=== PATIENT | male | born 1995 | race Caucasian/White ===

== ENCOUNTER 2017-11-09 13:45 | Emergency (ER) | payer OTHER ==
[2017-11-09 13:51] VITALS: PULSE 58
--- NOTE | 2017-11-09 14:49 | C.PDOC ---
History Of Present Illness 21yo male, presents to ER for evaluation of possible herpes exposure. Patient states 2 days ago, his girlfriend told him she had a herpes outbreak; patient reports last intercourse was 1 week ago. He denies any symptoms but is requesting testing for herpes. He denies any fever, chills, and offers no other medical complaints. PMD: Katarina Arzate Time Seen by Provider: 11/09/17 13:55 Chief Complaint (Nursing): Medical Clearance History Per: Patient History/Exam Limitations: no limitations Past Medical History Reviewed: Historical Data, Nursing Documentation, Vital Signs Vital Signs: Last Vital Signs Temp 98.2 F 11/09/17 13:48 Pulse 58 L 11/09/17 13:48 Resp 18 11/09/17 13:48 BP 130/76 11/09/17 13:48 Pulse Ox 100 11/09/17 14:53 - Medical History PMH: No Chronic Diseases Surgical History: No Surg Hx Family History: States: No Known Family Hx - Social History Hx Alcohol Use: No Hx Substance Use: No - Immunization History Hx Tetanus Toxoid Vaccination: Yes Hx Influenza Vaccination: Yes Hx Pneumococcal Vaccination: No Review Of Systems Except As Marked, All Systems Reviewed And Found Negative. Constitutional: Negative for: Fever, Chills Physical Exam - Physical Exam Appears: Non-toxic, No Acute Distress Skin: Normal Color, Warm, Dry Head: Atraumatic, Normacephalic Eye(s): bilateral: Normal Inspection Neck: Supple Chest: Symmetrical Cardiovascular: Rhythm Regular Respiratory: Normal Breath Sounds Male Genital: Normal Inspection, No Other (penile discharge, lesions) Neurological/Psych: Oriented x3 ED Course And Treatment O2 Sat by Pulse Oximetry: 100 (RA) Pulse Ox Interpretation: Normal Medical Decision Making Medical Decision Making: Impression: Herpes exposure Plan: -- Cultures sent Patient given prescription for Acyclovir and instructed to take the medication as prescribed. Patient informed results will not come in today and he will be informed when they are made available. Informed to follow up with PMD in 2-3 days. Disposition Counseled Patient/Family Regarding: Studies Performed, Diagnosis, Need For Followup, Rx Given - Disposition Referrals: [facility] [Outside] Disposition: HOME/ ROUTINE Disposition Time: 14:47 Condition: STABLE Additional Instructions: follow up with your doctor or medical clinic in 2 days call to make an appointment take medications as prescribed return to ER if symptoms worsens or progress Prescriptions: Acyclovir 400 mg PO TID #21 tablet Instructions: Genital Herpes Forms: [facility] ([place]), General Discharge Instructions - Clinical Impression Clinical Impression: Screen for STD (sexually transmitted disease) - Scribe Statement The provider has reviewed the documentation as recorded by the Scribe (Carlie Sena) Provider Attestation: All medical record entries made by the Scribe were at my direction and personally dictated by me. I have reviewed the chart and agree that the record accurately reflects my personal performance of the history, physical exam, medical decision making, and the department course for this patient. I have also personally directed, reviewed, and agree with the discharge instructions and disposition.
[2017-11-09 15:25] VITALS: BP 121/75; RESP 16; TEMP 98.8; O2SAT 97
== END 2017-11-09 15:20 | disposition home or self-care (01) ==
LOC: C.ER 13:45
DX: Z11.3 Encounter for screening for infections with a predominantly sexual mode of transmission (principal)